=== PATIENT | female | born 1980 | race American Indian/Alaskan Native ===

== ENCOUNTER 2016-08-05 15:48 | Outpatient (CLI) | payer MEDICAID, MEDICARE ==
[2016-08-05] MEDS ORDERED: CELESTONE SOLUSPAN IM ONE (15:58)
[2016-08-05] MEDS ORDERED: LACTATED RINGERS 500 ML IV ONE (15:59)
[2016-08-05 16:27] VITALS: BP 99/61
[2016-08-05 16:53] LABS: Bacteria,Urine 2+ /HPF (Negative); Bilirubin,Urine NEG (Negative); Blood,Urine NEG (Negative); Ketones,Urine NEG (Negative); Leukocyte Esterase,Urine SM (Negative); Nitrite,Urine NEG (Negative); Protein,Urine <15 mg/dL mg/dL (Negative); Urobilinogen,Urine < 2.0 mg/dL (<2.0); WBC,Urine < 1.0 /HPF (0.0-6.0)
== END 2016-08-05 17:00 | disposition home or self-care (01) ==
LOC: TRG 15:48
PROVIDERS: ATTEND Obstetrics & Gynecology
DX: O09.523 Supervision of elderly multigravida, third trimester (principal); O47.03 False labor before 37 completed weeks of gestation, third trimester; Z3A.34 34 weeks gestation of pregnancy
CPT/HCPCS: 81001; J0702; 96372

== ENCOUNTER 2018-03-06 04:41 | Inpatient (IN) | payer MEDICARE ==
[2018-03-06] MEDS ORDERED: CELESTONE SOLUSPAN IM SCH (09:00)
[2018-03-06] MEDS ORDERED: ZOFRAN IV PRN (09:07)
[2018-03-06] MEDS ORDERED: DEEP SEA NS PRN (09:07)
[2018-03-06] MEDS ORDERED: COLACE PO PRN (09:07)
[2018-03-06] MEDS ORDERED: MYLICON PO PRN (09:07)
[2018-03-06] MEDS ORDERED: TYLENOL PO PRN (09:07)
[2018-03-06] MEDS ORDERED: BENADRYL PO PRN (09:07)
[2018-03-06] MEDS ORDERED: AMBIEN PO PRN (09:07)
--- NOTE | 2018-03-06 09:11 | History and Physical Report ---
History of Present Illness Date of examination: 03/06/18 Chief complaint: my water broke History of present illness: Pt is a 37 year old -[place]ron[place] female ANGELLA 05/08/18 at 31w0d who presents with complaint of leakage of fluid on Fri03/04/18 around 10 pm. She initially presented to triage last night, where she had an ultrasound showing EVELIN 3.6 cm and nitrizine confirming rupture of membranes. When she was told she would be admitted until 34 wks she left the facility. She has had care at [facility] since 12 wks complicated by three deliveries referred to [facility] and receiving progesterone injections (but she missed her injection this Friday), advanced maternal age, tobacco use, partial previa in Dec 2017. Her GBS status is unkwown. She returns this morning reporting that she is willing to stay "but not for four weeks." Past History Past Medical History: no pertinent history Past Surgical History: no surgical history RN RELIEF CHARGE History: chlamydia (remote from ) Family/Genetic History: none Social history: smoking - Obstetrical History Expected Date of Delivery: 05/08/18 Actual Gestation: 31 Week(s) 0 Day(s) : 6 Para: 5 Hx # Term Pregnancies: 2 Number of Pregnancies: 3 Spontaneous Abortions: 0 Induced : 0 Number of Living Children: 5 Medications and Allergies Allergies Allergy/AdvReac Type Severity Reaction Status Date / Time No Known Allergies Allergy Verified 08/23/16 10:05 Home Medications Medication Instructions Recorded Confirmed Last Taken Type Vits96/Iron Fum/Folic 1 tab PO DAILY 05/06/13 03/05/18 08/22/16 14:00 History [ Tablet] 1 Active Meds: Active Medications Acetaminophen (Tylenol) 650 mg PO Q4H PRN PRN Reason: Pain MILD(1-3)/Fever >100.5/SWANSON Amoxicillin (Trimox) 250 mg PO Q8HR ANDREW; Protocol Stop: 03/13/18 09:07 Betamethasone Acet/Betameth SodPhos (Celestone Soluspan) 12 mg IM Q24HR ANDREW Stop: 03/06/18 10:01 Diphenhydramine HCl (Benadryl) 25 mg PO Q6H PRN PRN Reason: Itching Docusate Sodium (Colace) 100 mg PO Q12H PRN PRN Reason: Constipation Erythromycin (Arnoldo-Tab) 250 mg PO Q8HR [facility]; Protocol Stop: 03/13/18 09:07 Ampicillin Sodium (Polycillin/Ns 2 Gm/100 Ml) 2 gm in 100 mls @ 100 mls/hr IV Q6HR [facility]; Protocol Stop: 03/08/18 06:59 Lactated Ringer's (Lactated Ringers) 1,000 mls @ 125 mls/hr IV DIRECT ANDREW Multivitamins/Iron/Calcium ( Vitamin) 1 each PO QDAY ANDREW Ondansetron HCl (Zofran) 4 mg IV Q6H PRN PRN Reason: Nausea And Vomiting Simethicone (Mylicon) 80 mg PO Q6H PRN PRN Reason: Gas pain Sodium Chloride (Deep Sea) 2 spray NS Q4H PRN PRN Reason: Congestion Zolpidem Tartrate (Ambien) 10 mg PO ONCE PRN PRN Reason: Sleep Review of Systems All systems: negative - Vital Signs Vital signs: Vital Signs Temp Pulse Resp BP 97.7 F 101 H 24 125/56 03/06/18 04:54 03/06/18 04:54 03/06/18 04:54 03/06/18 04:54 Temp Pulse Resp BP Pulse Ox 97.7 F 81 24 87/45 03/06/18 04:54 03/06/18 08:05 03/06/18 04:54 03/06/18 08:05 - Physical Exam Breasts: Positive: deferred Cardiovascular: Regular rate Lungs: Positive: Clear to auscultation Abdomen: Positive: soft (gravid) Genitourinary (Female): Positive: normal external genitalia Uterus: Positive: enlarged (gravid) Extremities: Positive: normal - Obstetrical FHR: auscultation normal Uterine Contraction Monitor Mode: External Cervical Dilatation: 0.5 Uterine Contraction Pattern: Absent Uterine Tone Measurement Phase: Resting Results Result Diagrams: 03/06/18 10:49 All other labs normal. Assessment and Plan A: IUP at 31w0d PPROM Oligohydramnios Cephalic presentation on 03/05/18 H/o three prior deliveries Tobacco Abuse AMA GBS unknown P: Admit to antepartum service Steroid course for lung maturity Latency antibiotics Closely monitor maternal and status
[2018-03-06] MEDS ORDERED: LACTATED RINGERS 1,000 ML IV SCH (10:00)
[2018-03-06] MEDS ORDERED: PRENATAL VITAMIN PO SCH (10:00)
[2018-03-06] MEDS: AMPICILLIN/NS 2 GM/100 ML 2 GM/100 ML BAG IV SCH ×2 (10:30→16:40)
[2018-03-06 11:53] LABS: Basophils % (Auto) 0.6 % (0.0-1.8); Eosinophils # (Auto) 0.3 K/mm3 (0.0-0.4); Eosinophils % (Auto) 3.5 % (0.0-4.3); Hematocrit 31.2 % (30.3-42.9); Hemoglobin 10.7 gm/dl (10.1-14.3); Lymphocytes # (Auto) 1.9 K/mm3 (1.2-5.4); Lymphocytes % (Auto) 26.8 % (13.4-35.0); Mean Corpuscular HGB Conc 34 % (30-34); Mean Corpuscular Volume 89 fl (79-97); Monocytes # (Auto) 0.4 K/mm3 (0.0-0.8); Monocytes % (Auto) 5.2 % (0.0-7.3); Platelet Count 184 K/mm3 (140-440); Red Blood Count 3.52 M/mm3 (3.65-5.03); Red Cell Distribution Width 13.5 % (13.2-15.2)
[2018-03-06 16:58] LABS: Amphetamine Screen,Urine PRESUMPTIVE NEGATIVE; Benzodiazepines Screen,Urine PRESUMPTIVE NEGATIVE; Cannabinoid Screen,Urine PRESUMPTIVE NEGATIVE; Cocaine Screen,Urine PRESUMPTIVE NEGATIVE; Methadone Screen,Urine PRESUMPTIVE NEGATIVE; Opiate Screen,Urine PRESUMPTIVE NEGATIVE
[2018-03-06 17:10] VITALS: BP 99/56
--- NOTE | 2018-03-07 13:19 | Event Note ---
Date: 03/07/18 Late entry. Contacted by the patient's nurse because patient has decided to leave AGAINST MEDICAL ADVICE because she wants to "be with her children". The patient acknowledges the risks to her fetus and to her health of leaving the facility after being diagnosed with premature rupture of membranes. She signed the AGAINST MEDICAL ADVICE form prior to leaving. She does plan to return tomorrow for her second injection of betamethasone for lung maturity.
--- NOTE | 2018-03-07 13:22 | Discharge Summary ---
Providers - Providers Date of Admission: 03/06/18 09:07 Date of discharge: 03/06/18 Attending physician: JOANNA RUDD Primary care physician: JOANNA RUDD Hospitalization Reason for admission: rupture of membranes Hospital course: This patient was admitted to the antepartum service for premature rupture of membranes. She did receive 1 dose of betamethasone and started IV antibiotic therapy for latency. However the patient decided to leave AGAINST MEDICAL ADVICE on the afternoon of admission because she wants to be with her children. She understands the risk of maternal or compromise and desires to proceed with leaving the facility. She does plan to return tomorrow for her second betamethasone injection. Condition at discharge: Undetermined Disposition: DC-07 LEFT AGAINST MED ADVICE - Discharge Diagnoses (1) premature rupture of membranes (PPROM) with unknown onset of labor Status: Acute (2) Tobacco abuse Status: Acute (3) Advanced maternal age (AMA) in Status: Acute (4) Noncompliance Status: Acute Plan - Provider Discharge Summary Activity: other (Nothing in vagina for remainder of ) Diet: routine Instructions: routine Additional instructions: [] Smoking cessation referral if applicable(refer to patient education folder for contact #) [] Refer to [facility] Booklet Call your doctor immediately for: * Fever > 100.5 * Heavy vaginal bleeding ( >1 pad per hour) * Severe persistent headache * Shortness of breath * Reddened, hot, painful area to leg or breast * Drainage or odor from incision. * Keep incision clean and dry at all times and follow doctor's instructions regarding bathing/showering - Follow up plan Follow up: JOANNA RUDD MD [Primary Care Provider] - 7 Days
[2018-03-08] MEDS ORDERED: ERY-TAB PO SCH (09:08)
[2018-03-08] MEDS ORDERED: TRIMOX PO SCH (09:08)
== END 2018-03-06 18:40 | disposition left against medical advice (07) | DRG 833 ==
LOC: TRG 04:41 → LD 04:49 → TRG 09:07 → LD 09:07
PROVIDERS: ADMIT Obstetrics & Gynecology; ATTEND Obstetrics & Gynecology
DX: O42.913 Preterm premature rupture of membranes, unspecified as to length of time between rupture and onset of labor, third trimester (principal); Z53.21 Procedure and treatment not carried out due to patient leaving prior to being seen by health care provider; O99.334 Smoking (tobacco) complicating childbirth; F17.200 Nicotine dependence, unspecified, uncomplicated; Z91.14 Patient's other noncompliance with medication regimen; Z3A.31 31 weeks gestation of pregnancy
CPT/HCPCS: 36415; 59025; 76815; 76819; 80307; 81001; 85025; 86850; 86900; 86901; 96360; 96361; G0378; J0290; J0702; J7120

== ENCOUNTER 2018-03-07 13:00 | Outpatient (CLI) | payer MEDICAID, MEDICARE ==
[2018-03-07] MEDS ORDERED: CELESTONE SOLUSPAN IM ONE (13:10)
[2018-03-07] MEDS ORDERED: LACTATED RINGERS 500 ML IV ONE (13:46)
== END 2018-03-07 13:55 | disposition home or self-care (01) ==
LOC: TRG 13:00
PROVIDERS: ATTEND Obstetrics & Gynecology
DX: O47.03 False labor before 37 completed weeks of gestation, third trimester (principal); Z3A.31 31 weeks gestation of pregnancy; Z87.891 Personal history of nicotine dependence
CPT/HCPCS: 59025; 96372; J0702

== ENCOUNTER 2018-03-12 10:38 | Inpatient (IN) | payer MEDICARE ==
[2018-03-12] MEDS ORDERED: LACTATED RINGERS 500 ML IV ONE (11:04)
[2018-03-12 11:41] LABS: Bilirubin,Urine NEG (Negative); Blood,Urine LG (Negative); Color,Urine Straw (Yellow); Mucus,Urine FEW /HPF; Protein,Urine <15 mg/dL mg/dL (Negative)
[2018-03-12] MEDS ORDERED: CELESTONE SOLUSPAN IM SCH (12:00)
[2018-03-12 12:27] LABS: Basophils # (Auto) 0.1 K/mm3 (0.0-0.1); Basophils % (Auto) 0.5 % (0.0-1.8); Eosinophils # (Auto) 0.2 K/mm3 (0.0-0.4); Eosinophils % (Auto) 1.6 % (0.0-4.3); Hematocrit 35.1 % (30.3-42.9); Hemoglobin 12.1 gm/dl (10.1-14.3); Lymphocytes # (Auto) 1.7 K/mm3 (1.2-5.4); Lymphocytes % (Auto) 11.7 % (13.4-35.0); Mean Corpuscular HGB Conc 34 % (30-34); Mean Corpuscular Volume 88 fl (79-97); Monocytes # (Auto) 0.8 K/mm3 (0.0-0.8); Monocytes % (Auto) 5.7 % (0.0-7.3); Platelet Count 209 K/mm3 (140-440); Red Blood Count 3.99 M/mm3 (3.65-5.03)
[2018-03-12] MEDS ORDERED: AFLURIA QUAD 2018-2019 SYRINGE IM ONE (13:05)
[2018-03-12] MEDS ORDERED: LACTATED RINGERS 1,000 ML IV SCH (14:00)
[2018-03-12] MEDS ORDERED: NARCAN 2 MG/2 ML IV PRN (14:01)
--- NOTE | 2018-03-12 14:07 | Anesthesia Consultation ---
Anesthesia Consult and Med Hx Date of service: 03/12/18 - Airway Anesthetic Teeth Evaluation: Poor (multiple broken teeth) ROM Head & Neck: Adequate Mental/Hyoid Distance: Adequate Mallampati Class: Class II Intubation Access Assessment: Probably Good - Pre-Operative Health Status ASA Pre-Surgery Classification: ASA2 Proposed Anesthetic Plan: Epidural, Spinal - Pulmonary Hx Asthma: No COPD: No Hx Pneumonia: No - Cardiovascular System Hx Hypertension: No - Central Nervous System Hx Seizures: No Hx Psychiatric Problems: No - Endocrine Hx Renal Disease: No Hx End Stage Renal Disease: No Hx Hypothyroidism: No Hx Hyperthyroidism: No - Hematic Hx Anemia: Yes Hx Sickle Cell Disease: No - Other Systems Hx Alcohol Use: No Hx Substance Use: No
--- NOTE | 2018-03-12 14:33 | Ultrasound Report ---
OB ULTRASOUND History weight, presentation. Technique: Transabdominal ultrasound with Doppler interrogation. Gestation: Single Position: Cephalic Heart Rate: 134 BPM BPD: 7.9 cm = 31 w 5 d HC: 27.7 cm = 30 w 2 d AC: 25.7 cm = 29 w 6 d FL: 5.6 cm = 29 w 3 d HC/AC Ratio: 1.08 Cephalic Index: 85.8 Estimated Weight: 1477 grams. 5th percentile. LMP: 08/03/17 Clinical age = 31 w 4 d EDC: 05/10/18 US Gest. Age = 30 w 2 d EDC: 05/19/18 IMPRESSION: Viable, single intrauterine as described.
[2018-03-12] MEDS ORDERED: AMPICILLIN/NS 2 GM/100 ML 2 GM/100 ML BAG IV SCH (15:00)
[2018-03-12] MEDS ORDERED: fentaNYL-BUPIV 2 MCG/ML-0.125% 200 MCG/100 ML BAG EPIDURAL SCH (15:00)
[2018-03-12] MEDS ORDERED: PITOCin/NS 30 UNIT/500ML 30 UNITS/500 ML BAG IV SCH (17:00)
[2018-03-12] MEDS: PITOCin/NS 20 UNIT/1000ML DRIP 20 UNITS/1,000 ML BAG IV SCH ×2 (17:24→19:15)
--- NOTE | 2018-03-12 17:29 | Procedure Note ---
OB Delivery Note - Delivery Date of Delivery: 03/12/18 Surgeon: YEVGENIY SALINAS Estimated blood loss: 300cc - Vaginal Delivery presentation: vertex Delivery position: OA Episiotomy: none Delivery laceration: none Anesthesia: epidural Delivery comments: Called to room by RN due to heart tones down in the 80s. Patient completely dilated and +[address] Dixon called and in route. Patient with epidural in place and delivered a male after approximately 3 pushes. Cord clamped and cut NICU personnel present and was given the infant. Cord blood obtained. This time Dr. Pacheco arrived and delivered the placenta. - A at 1 minute: 8 at 5 minutes: 9 Gender: Male
--- NOTE | 2018-03-12 17:30 | History and Physical Report ---
History of Present Illness Date of examination: 03/12/18 Date of admission: 03/12/18 12:02 Chief complaint: contractions History of present illness: 37y/o @ 31+4 weeks presents to triage with the complaint of uterine contractions. The patient was found to be 6cm on evaluation. The patient has been ruptured for weeks but refused to be admitted despite being aware of the risks to her and her infant. The patient has had sporadic and inconsistent care. She did receive betamethasone last week. Past History Past Medical History: other (poor dental hygiene) Past Surgical History: no surgical history Social history: single, smoking - Obstetrical History : 8 Para: 7 Hx # Term Pregnancies: 4 Number of Pregnancies: 3 Spontaneous Abortions: 0 Induced : 0 Number of Living Children: 7 Medications and Allergies Allergies Allergy/AdvReac Type Severity Reaction Status Date / Time No Known Allergies Allergy Verified 08/23/16 10:05 Home Medications Medication Instructions Recorded Confirmed Last Taken Type Vits96/Iron Fum/Folic 1 tab PO DAILY 05/06/13 03/05/18 08/22/16 14:00 History [ Tablet] 1 Active Meds: Active Medications Betamethasone Acet/Betameth SodPhos (Celestone Soluspan) 12 mg IM Q24H ANDREW Stop: 03/13/18 12:01 Ephedrine Sulfate (Ephedrine Sulfate) 10 mg IV Q2M PRN PRN Reason: Hypotension Lactated Ringer's (Lactated Ringers) 1,000 mls @ 125 mls/hr IV DIRECT ANDREW Fentanyl/Bupivacaine/Sodium Chlor (Fentanyl-Bupiv 2 Mcg/Ml-0.125%) 200 mcg in 100 mls @ 12 mls/hr EPIDURAL TITR ANDREW; Protocol Last Admin: 03/12/18 14:43 Dose: 12 mls/hr Documented by: Ampicillin Sodium (Polycillin/Ns 2 Gm/100 Ml) 2 gm in 100 mls @ 100 mls/hr IV Q6H ANDREW Stop: 03/14/18 09:59 Last Admin: 03/12/18 14:58 Dose: 100 mls/hr Documented by: Oxytocin/Sodium Chloride (Pitocin/Ns 20 Unit/1000ml Drip) 20 units in 1,000 mls @ 125 mls/hr IV DIRECT ANDREW Oxytocin/Sodium Chloride (Pitocin/Ns 30 Unit/500ml) 30 units in 500 mls @ 2 mls/hr IV TITR ANDREW; Protocol Naloxone HCl (Narcan 2 Mg/2 Ml) 0.2 mg IV Q5M PRN PRN Reason: Respiratory sedation Review of Systems All systems: negative Genitourinary: vaginal bleeding, leakage of fluid, contractions - Vital Signs Vital signs: Vital Signs Pulse BP 102 H 112/63 03/12/18 11:02 03/12/18 11:02 Temp Pulse Resp BP Pulse Ox 98.6 F 101 H 20 94/59 100 03/12/18 15:00 03/12/18 17:24 03/12/18 15:00 03/12/18 17:24 03/12/18 16:58 - Physical Exam Breasts: Positive: deferred Cardiovascular: Regular rate Lungs: Positive: Clear to auscultation Results Result Diagrams: 03/12/18 12:00 Abnormal lab results 03/12/18 03/12/18 Range/Units 11:20 12:00 WBC 14.7 H (4.5-11.0) K/mm3 Lymph % (Auto) 11.7 L (13.4-35.0) % Seg Neutrophils % 80.5 H (40.0-70.0) % Seg Neutrophils # 11.8 H (1.8-7.7) K/mm3 Urine WBC (Auto) 10.0 H (0.0-6.0) /HPF All other labs normal. Assessment and Plan - Patient Problems (1) labor Current Visit: Yes Status: Acute Plan to address problem: admit to L&D (2) Advanced maternal age (AMA) in Current Visit: No Status: Acute (3) premature rupture of membranes (PPROM) with unknown onset of labor Current Visit: No Status: Acute
[2018-03-12] MEDS ORDERED: BENADRYL PO PRN (17:39)
[2018-03-12] MEDS ORDERED: NORCO 5/325 PO PRN (17:39)
[2018-03-12] MEDS ORDERED: TYLENOL PO PRN (17:39)
[2018-03-12] MEDS ORDERED: PHENERGAN PR PRN (17:39)
[2018-03-12] MEDS ORDERED: PHENERGAN PO PRN (17:39)
[2018-03-12] MEDS ORDERED: DULCOLAX PR PRN (17:39)
[2018-03-12] MEDS ORDERED: MILK OF MAGNESIA PO PRN (17:39)
[2018-03-12] MEDS ORDERED: ZOFRAN IV PRN (17:39)
[2018-03-12] MEDS ORDERED: TUCKS PAD TP PRN (17:39)
[2018-03-12] MEDS ORDERED: LANSINOH TP PRN (17:39)
--- NOTE | 2018-03-12 17:44 | Event Note ---
Date: 03/12/18 Patient had a precipitous delivery attended by Dr Salinas. The nurse reports prior to delivery there was a large gush of blood despite the patient already having ruptured membranes. The placenta delivered spontaneously intact. There was evidence of an organized clot covering approximately 30% of the placenta. No lacerations on the patient were noted. EBL 200ml.
[2018-03-12] MEDS ORDERED: SODIUM CHLORIDE FLUSH SYRINGE 10 ML IV NR (18:00)
[2018-03-12] MEDS: IBUPROFEN PO SCH ×2 (18:34→23:32)
[2018-03-12 19:14] LABS: Amphetamine Screen,Urine PRESUMPTIVE NEGATIVE; Benzodiazepines Screen,Urine PRESUMPTIVE NEGATIVE; Cannabinoid Screen,Urine PRESUMPTIVE NEGATIVE; Cocaine Screen,Urine PRESUMPTIVE NEGATIVE; Methadone Screen,Urine PRESUMPTIVE NEGATIVE; Opiate Screen,Urine PRESUMPTIVE NEGATIVE
[2018-03-13] MEDS: IBUPROFEN PO SCH ×2 (05:32→13:11)
[2018-03-13 06:27] LABS: Hematocrit 30.6 % (30.3-42.9)
--- NOTE | 2018-03-13 09:54 | Progress Note ---
Assessment and Plan A/P PPD delivery baby in [place] desires tubal ligation PP routine PP care consider d/c home tomorrow Subjective - Subjective Date of service: 03/13/18 Principal diagnosis: Patient reports: appetite normal, voiding normally, pain well controlled, flatus, ambulating normally : doing well, in NICU Objective - Vital Signs Latest vital signs: Vital Signs Temp Pulse Resp BP BP Pulse Ox 03/13/18 08:20 97.6 F 89 18 101/64 101/64 99 03/13/18 04:46 98.2 F 91 H 18 94/60 98 03/13/18 00:30 98.6 F 98 H 18 108/61 97 03/12/18 20:20 98.4 F 84 18 106/69 98 03/12/18 18:55 93 H 122/57 03/12/18 18:40 90 106/56 03/12/18 18:33 113 H 118/58 03/12/18 18:30 98.1 F 20 03/12/18 18:11 83 145/58 03/12/18 17:39 93 H 94/52 03/12/18 17:24 101 H 94/59 03/12/18 17:20 98.3 F 20 03/12/18 17:15 96 H 103/58 03/12/18 17:01 89 101/59 03/12/18 16:58 89 100 03/12/18 16:53 100 H 99 03/12/18 16:48 91 H 98 03/12/18 16:45 88 98/57 03/12/18 16:43 91 H 99 03/12/18 16:37 89 100 03/12/18 16:32 92 H 100 03/12/18 16:30 93 H 103/62 03/12/18 16:27 94 H 100 03/12/18 16:22 91 H 100 03/12/18 16:15 95 H 106/64 03/12/18 16:12 103 H 99 03/12/18 16:07 95 H 100 03/12/18 16:02 93 H 100 03/12/18 16:00 95 H 108/58 03/12/18 15:57 95 H 100 03/12/18 15:52 109 H 100 03/12/18 15:47 100 H 97 03/12/18 15:45 99 H 94/54 03/12/18 15:42 99 H 97 03/12/18 15:37 101 H 97 03/12/18 15:32 99 H 97 03/12/18 15:30 95 H 100/58 03/12/18 15:27 97 H 98 03/12/18 15:22 94 H 98 03/12/18 15:17 97 H 99 03/12/18 15:15 100 H 94/59 03/12/18 15:12 101 H 98 03/12/18 15:07 94 H 99 03/12/18 15:02 94 H 99 03/12/18 15:00 98.6 F 87 20 97/61 03/12/18 14:57 92 H 99/56 99 03/12/18 14:52 90 99 03/12/18 14:47 94 H 99 03/12/18 14:42 94 H 100 03/12/18 14:40 98 H 99/54 03/12/18 14:38 84 101/56 03/12/18 14:37 87 100 03/12/18 14:36 87 94/55 03/12/18 14:34 88 89/53 03/12/18 14:33 93 H 95/49 03/12/18 14:32 94 H 100 03/12/18 14:31 86 94/51 03/12/18 14:29 91 H 95/65 03/12/18 14:27 101 H 100 03/12/18 14:26 96 H 103/58 03/12/18 14:24 98 H 99/62 03/12/18 14:22 100 H 98/59 100 03/12/18 14:20 94 H 95/58 03/12/18 14:18 94 H 98/61 03/12/18 14:17 101 H 100 03/12/18 14:16 96 H 94/59 03/12/18 14:14 96 H 98/61 03/12/18 14:13 93 H 93/61 03/12/18 14:12 95 H 99 03/12/18 14:10 96 H 96/53 03/12/18 14:09 90 102/51 03/12/18 14:07 98 H 103/57 99 03/12/18 14:02 91 H 100 03/12/18 14:01 104 H 103/79 01/10/19 13:57 89 100 03/12/18 13:52 101 H 100 03/12/18 13:48 99 H 112/77 03/12/18 13:47 99 H 95 03/12/18 11:05 98.6 F 102 H 20 112/63 03/12/18 11:02 102 H 11263 Intake and Output 03/12/18 03/13/18 03/13/18 23:59 07:59 15:59 Intake Total 1120 920 360 Output Total 1400 700 Balance -280 220 360 Intake: IV 1000 PITOCin/NS 20 UNIT/1000ML 1000 DRIP 20 units In 1,000 ml @ 125 mls/hr IV DIRECT ANDREW Rx#:[id number] Oral 120 920 120 Intake, Free Water 240 Output: Urine 1400 700 Indwelling Catheter 600 Void 800 700 Other: Total, Intake Amount 120 240 120 Total, Output Amount 300 400 # Voids Void 1 Estimated Blood Loss 200 - Exam Breasts: Present: normal Cardiovascular: Present: Regular rate, Normal S1 Lungs: Present: Clear to auscultation, Normal air movement Abdomen: Present: normal appearance, soft, normal bowel sounds. Absent: distention, tenderness, guarding Vulva: both: normal Uterus: Present: normal, firm, fundal height below umbilicus. Absent: bogginess, tenderness Extremities: Present: normal Deep Tendon Reflex Grade: Normal +2 - Labs Labs: Abnormal lab results 03/12/18 03/12/18 03/13/18 Range/Units 11:20 12:00 06:09 WBC 14.7 H (4.5-11.0) K/mm3 Hgb 10.0 L (10.1-14.3) gm/dl Lymph % (Auto) 11.7 L (13.4-35.0) % Seg Neutrophils % 80.5 H (40.0-70.0) % Seg Neutrophils # 11.8 H (1.8-7.7) K/mm3 Urine WBC (Auto) 10.0 H (0.0-6.0) /HPF
--- NOTE | 2018-03-13 17:08 | Discharge Summary ---
Providers - Providers Date of Admission: 03/12/18 12:02 Date of discharge: 03/14/18 Attending physician: JOANNA RUDD Primary care physician: JOANNA RUDD Hospitalization Reason for admission: active labor, vaginal bleeding, labor Delivery: Episiotomy: none Laceration: none Incision: normal complications: none Discharge diagnosis: delivery [place] baby: male Hospital course: kenia admitted and delivered a baby in [place]. Did well PP and d/c home ppd 2. F/u in 4 weeks Condition at discharge: Good Disposition: DC-01 TO HOME OR SELFCARE Plan - Discharge Medications Prescriptions: Ferrous Sulfate 325 mg PO BID #60 tablet. Ibuprofen [Motrin] 600 mg PO Q8H PRN #30 tablet PRN Reason: Pain oxyCODONE /ACETAMINOPHEN [Percocet 5/325] 1 tab PO Q6HR PRN #20 tablet PRN Reason: Pain - Provider Discharge Summary Activity: routine, no sex for 6 weeks, no strenuous exercise Diet: routine Instructions: routine Additional instructions: [] Smoking cessation referral if applicable(refer to patient education folder for contact #) [] Refer to [facility] Booklet Call your doctor immediately for: * Fever > 100.5 * Heavy vaginal bleeding ( >1 pad per hour) * Severe persistent headache * Shortness of breath * Reddened, hot, painful area to leg or breast * Drainage or odor from incision. * Keep incision clean and dry at all times and follow doctor's instructions regarding bathing/showering - Follow up plan Follow up: JOANNA RUDD MD [Primary Care Provider] - 04/09/18
[2018-03-13 18:43] VITALS: BP 120/66
[2018-03-14] MEDS ORDERED: BOOSTRIX IM ONE (06:00)
== END 2018-03-13 18:36 | disposition home or self-care (01) | DRG 805 ==
LOC: TRG 10:38 → LD 12:02 → OB 20:11
PROVIDERS: ADMIT Obstetrics & Gynecology; ATTEND Obstetrics & Gynecology
PROC: 10E0XZZ Delivery of Products of Conception, External Approach (ICD-10-PCS; principal; 2018-03-12)
PROC: 3E0R3BZ Introduction of Anesthetic Agent into Spinal Canal, Percutaneous Approach (ICD-10-PCS; 2018-03-12)
PROC: 00HU33Z Insertion of Infusion Device into Spinal Canal, Percutaneous Approach (ICD-10-PCS; 2018-03-12)
DX: O42.013 Preterm premature rupture of membranes, onset of labor within 24 hours of rupture, third trimester (principal); O60.14X0 Preterm labor third trimester with preterm delivery third trimester, not applicable or unspecified; Z37.0 Single live birth; O99.334 Smoking (tobacco) complicating childbirth; F17.210 Nicotine dependence, cigarettes, uncomplicated; O62.3 Precipitate labor; Z3A.31 31 weeks gestation of pregnancy
CPT/HCPCS: 36415; 76816; 80307; 81001; 85014; 85018; 85025; 86592; 86850; 86900; 86901; 88307; 90686; G0378; J0290; J0702; J2590; J7120

== ENCOUNTER 2018-03-15 05:41 | Emergency (ER) | payer MEDICARE | END 2018-03-15 05:53 | disposition left against medical advice (07) | LOC: ED 05:41 ==

== ENCOUNTER 2020-09-30 14:26 | Emergency (ER) | payer MEDICARE ==
[2020-09-30 15:06] VITALS: BP 97/69
--- NOTE | 2020-09-30 15:33 | Emergency Department Report ---
ED ENT HPI - General Chief complaint: Headache Stated complaint: DENTAL PAIN, HEADACHE Time Seen by Provider: 09/30/20 15:27 Source: patient Mode of arrival: Ambulatory Limitations: No Limitations - History of Present Illness Initial comments: 40-year-old female presents to the ER today with complaints of left lower dental pain which started mildly about a week ago but has been getting worse. She states that the toothache is causing her to have a headache. She reports associated swelling. She admits that she does have a history of bad teeth. She does not currently have a dentist. She denies any trismus, drooling, difficulty swallowing, shortness of breath, fever or chills. MD complaint: tooth pain -: week(s) (1) Severity: moderate, severe - Related Data Home Medications Medication Instructions Recorded Confirmed Last Taken Vits96/Iron Fum/Folic 1 tab PO DAILY 05/06/13 03/12/18 08/22/16 14:00 [ Tablet] 1 Previous Rx's Medication Instructions Recorded Last Taken Type Ferrous Sulfate 325 mg PO BID #60 tablet. 03/13/18 Unknown Rx oxyCODONE /ACETAMINOPHEN [Percocet 1 tab PO Q6HR PRN #20 tablet 03/13/18 Unknown Rx 5/325] Ibuprofen [Motrin 600 MG tab] 600 mg PO Q8H PRN #30 tablet 09/30/20 Unknown Rx Penicillin V Potassium 500 mg PO QID #40 tablet 09/30/20 Unknown Rx traMADoL [Ultram] 50 mg PO Q6HR PRN #12 tablet 09/30/20 Unknown Rx Allergies Allergy/AdvReac Type Severity Reaction Status Date / Time No Known Allergies Allergy Verified 08/23/16 10:05 ED Dental HPI - General Chief complaint: Headache Stated complaint: DENTAL PAIN, HEADACHE Time Seen by Provider: 09/30/20 15:27 Source: patient Mode of arrival: Ambulatory Limitations: No Limitations - Related Data Home Medications Medication Instructions Recorded Confirmed Last Taken Vits96/Iron Fum/Folic 1 tab PO DAILY 05/06/13 03/12/18 08/22/16 14:00 [ Tablet] 1 Previous Rx's Medication Instructions Recorded Last Taken Type Ferrous Sulfate 325 mg PO BID #60 tablet. 03/13/18 Unknown Rx oxyCODONE /ACETAMINOPHEN [Percocet 1 tab PO Q6HR PRN #20 tablet 03/13/18 Unknown Rx 5/325] Ibuprofen [Motrin 600 MG tab] 600 mg PO Q8H PRN #30 tablet 09/30/20 Unknown Rx Penicillin V Potassium 500 mg PO QID #40 tablet 09/30/20 Unknown Rx traMADoL [Ultram] 50 mg PO Q6HR PRN #12 tablet 09/30/20 Unknown Rx Allergies Allergy/AdvReac Type Severity Reaction Status Date / Time No Known Allergies Allergy Verified 08/23/16 10:05 ED Review of Systems ROS: Stated complaint: DENTAL PAIN, HEADACHE Other details as noted in HPI Comment: All other systems reviewed and negative Constitutional: denies: chills, fever Eyes: denies: eye pain, eye discharge, vision change ENT: dental pain Respiratory: denies: cough, shortness of breath, SOB with exertion, SOB at rest, wheezing Cardiovascular: denies: chest pain, palpitations, dyspnea on exertion, edema, syncope, paroxysmal nocturnal dyspnea Gastrointestinal: denies: abdominal pain, nausea, diarrhea, constipation, hematemesis, hematochezia Genitourinary: denies: urgency, dysuria, discharge Musculoskeletal: denies: back pain, joint swelling, arthralgia Skin: denies: rash, lesions, change in color, change in hair/nails, pruritus Neurological: denies: headache, weakness, paresthesias, confusion, abnormal gait, vertigo Psychiatric: denies: anxiety, depression, auditory hallucinations, visual hallucinations, homicidal thoughts, suicidal thoughts ED Past Medical Hx - Past Medical History Previous Medical History?: Yes Hx Hypertension: No Hx Congestive Heart Failure: No Hx Diabetes: No Hx Deep Vein Thrombosis: No Hx Renal Disease: No Hx Sickle Cell Disease: No Hx Headaches / Migraines: No Hx Seizures: No Hx Asthma: No Hx COPD: No Hx HIV: No Additional medical history: toothache - Surgical History Past Surgical History?: No - Social History Smoking Status: Current Every Day Smoker Substance Use Type: None - Medications Home Medications: Home Medications Medication Instructions Recorded Confirmed Last Taken Type Vits96/Iron Fum/Folic 1 tab PO DAILY 05/06/13 03/12/18 08/22/16 14:00 History [ Tablet] 1 Ferrous Sulfate 325 mg PO BID #60 tablet. 03/13/18 Unknown Rx oxyCODONE /ACETAMINOPHEN [Percocet 1 tab PO Q6HR PRN #20 tablet 03/13/18 Unknown Rx 5/325] Ibuprofen [Motrin 600 MG tab] 600 mg PO Q8H PRN #30 tablet 09/30/20 Unknown Rx Penicillin V Potassium 500 mg PO QID #40 tablet 09/30/20 Unknown Rx traMADoL [Ultram] 50 mg PO Q6HR PRN #12 tablet 09/30/20 Unknown Rx ED Physical Exam - General Limitations: No Limitations General appearance: alert, in no apparent distress - Head Head exam: Present: atraumatic, normocephalic, normal inspection - Eye Eye exam: Present: normal appearance, PERRL, EOMI Pupils: Present: normal accommodation - ENT ENT exam: Present: mucous membranes moist - Expanded ENT Exam Expanded Mouth exam: Present: normal external inspection Teeth exam: Present: dental caries (diffusely) 1 - Dental Tenderness (Severe tenderness), Other (Mild gingival swelling, but no jaw facial swelling no facial cellulitis no obvious abscess) Throat exam: Positive: normal inspection - Neck Neck exam: Present: normal inspection, full ROM. Absent: lymphadenopathy - Respiratory Respiratory exam: Present: normal lung sounds bilaterally. Absent: respiratory distress, wheezes, rales, rhonchi - Cardiovascular Cardiovascular Exam: Present: regular rate, normal rhythm, normal heart sounds - GI/Abdominal GI/Abdominal exam: Present: soft. Absent: distended, tenderness, guarding, rebound - Neurological Exam Neurological exam: Present: alert, oriented X3, CN II-XII intact, normal gait - Psychiatric Psychiatric exam: Present: normal affect, normal mood - Skin Skin exam: Present: intact ED Course Vital Signs 09/30/20 15:04 Temperature 98.7 F Pulse Rate 103 H Respiratory 18 Rate Blood Pressure 97/69 O2 Sat by Pulse 100 Oximetry Critical care attestation.: If time is entered above; I have spent that time in minutes in the direct care of this critically ill patient, excluding procedure time. ED Disposition Clinical Impression: Dental caries, Periapical abscess Disposition: TO HOME OR SELFCARE Is pt being admited?: No Does the pt Need Aspirin: No Condition: Stable Instructions: Dental Abscess, [id number] Additional Instructions: Take the ibuprofen and the penicillin as prescribed. It is important that you try to follow-up with one of the dentist listed on the list given to you at discharge. Return to the ER if your symptoms changes or worsens in any way. Prescriptions: Ibuprofen [Motrin 600 MG tab] 600 mg PO Q8H PRN #30 tablet PRN Reason: Pain Penicillin V Potassium 500 mg PO QID #40 tablet traMADoL [Ultram] 50 mg PO Q6HR PRN #12 tablet PRN Reason: Pain Referrals: PRIMARY CARE, [Primary Care Provider] - 3-5 Days Time of Disposition: 15:38
== END 2020-09-30 16:40 | disposition home or self-care (01) ==
LOC: ED 14:26
DX: K02.9 Dental caries, unspecified (principal); K04.7 Periapical abscess without sinus
CPT/HCPCS: 99282

== ENCOUNTER 2020-10-17 17:31 | Emergency (ER) | payer SELFPAY | END 2020-10-17 17:57 | LOC: ED 17:31 | DX: R05 Cough (principal); R09.81 Nasal congestion; Z53.21 Procedure and treatment not carried out due to patient leaving prior to being seen by health care provider ==

== ENCOUNTER 2020-11-22 14:20 | Emergency (ER) | payer SELFPAY ==
[2020-11-22 16:36] VITALS: BP 99/67
--- NOTE | 2020-11-22 16:48 | Emergency Department Report ---
ED Female HPI - General Chief complaint: Abdominal Pain Stated complaint: YEAST INFECTION Time Seen by Provider: 11/22/20 16:36 Source: patient Mode of arrival: Ambulatory Limitations: No Limitations - History of Present Illness Initial comments: Patient is a 40-year-old female presents emergency room complaints of vaginal discharge that began 4 days ago. She has associated vaginal itching, vaginal burning. She states that she does not have any discomfort with urination but just has discomfort when the urine touches the outer skin of the vagina. She states the discharge is clear and watery. She denies any fever, nausea, vomiting, diarrhea, dysuria, urinary frequency, urinary odor, dark urine, abdominal pain, back pain, lesions or blisters. She denies any past medical history. No allergies to medications. She states that she is only sexually active with her and denies any concerns for STDs. She states her last menstrual cycle was 11/01/2020. - Related Data Home Medications Medication Instructions Recorded Confirmed Last Taken Vits96/Iron Fum/Folic 1 tab PO DAILY 05/06/13 03/12/18 08/22/16 14:00 [ Tablet] 1 Previous Rx's Medication Instructions Recorded Last Taken Type Ferrous Sulfate 325 mg PO BID #60 tablet. 03/13/18 Unknown Rx oxyCODONE /ACETAMINOPHEN [Percocet 1 tab PO Q6HR PRN #20 tablet 03/13/18 Unknown Rx 5/325] Ibuprofen [Motrin 600 MG tab] 600 mg PO Q8H PRN #30 tablet 09/30/20 Unknown Rx Penicillin V Potassium 500 mg PO QID #40 tablet 09/30/20 Unknown Rx traMADoL [Ultram] 50 mg PO Q6HR PRN #12 tablet 09/30/20 Unknown Rx Fluconazole [Diflucan TAB] 100 mg PO QDAY 3 Days #3 tablet 11/22/20 Unknown Rx metroNIDAZOLE [Flagyl] 500 mg PO BID 7 Days #14 tab 11/22/20 Unknown Rx Allergies Allergy/AdvReac Type Severity Reaction Status Date / Time No Known Allergies Allergy Verified 11/22/20 15:01 ED Review of Systems ROS: Stated complaint: YEAST INFECTION Other details as noted in HPI Comment: All other systems reviewed and negative ED Past Medical Hx - Past Medical History Previous Medical History?: No Hx Hypertension: No Hx Congestive Heart Failure: No Hx Diabetes: No Hx Deep Vein Thrombosis: No Hx Renal Disease: No Hx Sickle Cell Disease: No Hx Headaches / Migraines: No Hx Seizures: No Hx Asthma: No Hx COPD: No Hx HIV: No Additional medical history: toothache - Surgical History Past Surgical History?: No - Social History Smoking Status: Current Every Day Smoker Substance Use Type: None - Medications Home Medications: Home Medications Medication Instructions Recorded Confirmed Last Taken Type Vits96/Iron Fum/Folic 1 tab PO DAILY 05/06/13 03/12/18 08/22/16 14:00 History [ Tablet] 1 Ferrous Sulfate 325 mg PO BID #60 tablet. 03/13/18 Unknown Rx oxyCODONE /ACETAMINOPHEN [Percocet 1 tab PO Q6HR PRN #20 tablet 03/13/18 Unknown Rx 5/325] Ibuprofen [Motrin 600 MG tab] 600 mg PO Q8H PRN #30 tablet 09/30/20 Unknown Rx Penicillin V Potassium 500 mg PO QID #40 tablet 09/30/20 Unknown Rx traMADoL [Ultram] 50 mg PO Q6HR PRN #12 tablet 09/30/20 Unknown Rx Fluconazole [Diflucan TAB] 100 mg PO QDAY 3 Days #3 tablet 11/22/20 Unknown Rx metroNIDAZOLE [Flagyl] 500 mg PO BID 7 Days #14 tab 11/22/20 Unknown Rx ED Physical Exam - General Limitations: No Limitations General appearance: alert, in no apparent distress - Head Head exam: Present: atraumatic, normocephalic - Eye Eye exam: Present: normal appearance - ENT ENT exam: Present: mucous membranes moist - Respiratory Respiratory exam: Present: normal lung sounds bilaterally. Absent: respiratory distress, wheezes, rales, rhonchi, stridor, chest wall tenderness, accessory muscle use, decreased breath sounds, prolonged expiratory - Cardiovascular Cardiovascular Exam: Present: regular rate, normal rhythm, normal heart sounds. Absent: systolic murmur, diastolic murmur, rubs, gallop - GI/Abdominal GI/Abdominal exam: Present: soft, normal bowel sounds. Absent: distended, tenderness, guarding, rebound, rigid - Neurological Exam Neurological exam: Present: alert, oriented X3 - Psychiatric Psychiatric exam: Present: normal affect, normal mood - Skin Skin exam: Present: warm, dry ED Course Vital Signs 11/22/20 14:59 Temperature 98.0 F Pulse Rate 82 Respiratory 18 Rate Blood Pressure 99/67 O2 Sat by Pulse 100 Oximetry ED Medical Decision Making - Medical Decision Making Patient is a 40-year-old female presents emergency room complaints of vaginal discharge that began 4 days ago. She has associated vaginal itching, vaginal burning. She states that she does not have any discomfort with urination but just has discomfort when the urine touches the outer skin of the vagina. She st ates the discharge is clear and watery. She denies any fever, nausea, vomiting, diarrhea, dysuria, urinary frequency, urinary odor, dark urine, abdominal pain, back pain, lesions or blisters. She denies any past medical history. No allergies to medications. She states that she is only sexually active with her and denies any concerns for STDs. She states her last menstrual cycle was 11/01/2020. Vitals are stable. Patient has no abdominal tenderness on exam, no guarding, no rebound, no rigidity, no problems, no peritoneal signs. Patient is not having any urinary symptoms, she denies back pain, abdominal pain, fever, nausea, vomiting. Patient denies any concerns for STDs. Symptoms likely related to vaginitis, could be from bacterial vaginosis versus yeast. Patient given prescription for medication. Discussed the importance of outpatient primary care and [facility] [employer] [employer] follow-up. Advised patient Please take medication as prescribed. Follow-up with [employer]. Return to emergency room for any new or worsening symptoms. Critical care attestation.: If time is entered above; I have spent that time in minutes in the direct care of this critically ill patient, excluding procedure time. ED Disposition Clinical Impression: Vaginitis Qualifiers: Chronicity: acute Qualified Code(s): N76.0 - Acute vaginitis Disposition: 01 HOME / SELF CARE / HOMELESS Is pt being admited?: No Does the pt Need Aspirin: No Condition: Stable Instructions: Vaginitis, Abdominal Pain (ED) Additional Instructions: Please take medication as prescribed. Follow-up with [facility] [employer] [employer]. Return to emergency room for any new or worsening symptoms. Prescriptions: Fluconazole [Diflucan TAB] 100 mg PO QDAY 3 Days #3 tablet metroNIDAZOLE [Flagyl] 500 mg PO BID 7 Days #14 tab Referrals: [facility] [Provider Group] - 2-3 Days SHELDON HERNANDEZ MD [Staff Physician] - 2-3 Days Time of Disposition: 16:47 Print Language: SLOVENIAN
== END 2020-11-22 17:59 | disposition home or self-care (01) ==
LOC: ED 14:20
DX: N76.0 Acute vaginitis (principal); F17.200 Nicotine dependence, unspecified, uncomplicated; Z79.899 Other long term (current) drug therapy
CPT/HCPCS: 99282

== ENCOUNTER 2020-12-27 15:31 | Emergency (ER) | payer SELFPAY ==
--- NOTE | 2020-12-27 17:12 | Emergency Department Report ---
ED Female HPI - General Chief complaint: Vaginal Bleeding Stated complaint: STOMACH PAIN , SPOTTING, ITCHING BURNING Time Seen by Provider: 12/27/20 16:12 Source: patient, family Mode of arrival: Ambulatory Limitations: No Limitations - History of Present Illness Initial comments: 40-year-old female presents to the ER today with complaints of vaginal spotting. Patient states that her last menstrual cycle was November 29, 2020. Patient states that she was if she is because she has taken a few home tests and some of them have been positive. She states that the spotting started this morning. She denies any associated low abdominal cramping but does report associated vaginal itching and burning which started yesterday. She also reports a yellow vaginal discharge since yesterday. She denies any dysuria or hematuria. She reports same sexual partner with her for several years. She states that she is G9, P8 Ab0. Complaint: vaginal bleeding -: Sudden - Related Data Home Medications Medication Instructions Recorded Confirmed Last Taken Vits96/Iron Fum/Folic 1 tab PO DAILY 05/06/13 03/12/18 08/22/16 14:00 [ Tablet] 1 Previous Rx's Medication Instructions Recorded Last Taken Type Ferrous Sulfate 325 mg PO BID #60 tablet. 03/13/18 Unknown Rx oxyCODONE /ACETAMINOPHEN [Percocet 1 tab PO Q6HR PRN #20 tablet 03/13/18 Unknown Rx 5/325] Ibuprofen [Motrin 600 MG tab] 600 mg PO Q8H PRN #30 tablet 09/30/20 Unknown Rx Penicillin V Potassium 500 mg PO QID #40 tablet 09/30/20 Unknown Rx traMADoL [Ultram] 50 mg PO Q6HR PRN #12 tablet 09/30/20 Unknown Rx Fluconazole [Diflucan TAB] 100 mg PO QDAY 3 Days #3 tablet 11/22/20 Unknown Rx DOXYCYCLINE Hyclate [Vibramycin 100 mg PO Q12HR #14 capsule 12/27/20 Unknown Rx CAP] metroNIDAZOLE [Flagyl TAB] 500 mg PO BID 7 Days #14 tab 12/27/20 Unknown Rx Allergies Allergy/AdvReac Type Severity Reaction Status Date / Time No Known Allergies Allergy Verified 12/27/20 15:37 ED Review of Systems ROS: Stated complaint: STOMACH PAIN , SPOTTING, ITCHING BURNING Other details as noted in HPI Comment: All other systems reviewed and negative Gastrointestinal: denies: abdominal pain, nausea, diarrhea, constipation, hematemesis Genitourinary: discharge, other (vag itching ) Skin: denies: rash, lesions Neurological: denies: headache, weakness, paresthesias Psychiatric: denies: anxiety, depression, auditory hallucinations, visual hallucinations, homicidal thoughts, suicidal thoughts Hematological/Lymphatic: denies: easy bleeding, easy bruising, swollen glands ED Past Medical Hx - Past Medical History Hx Hypertension: No Hx Congestive Heart Failure: No Hx Diabetes: No Hx Deep Vein Thrombosis: No Hx Renal Disease: No Hx Sickle Cell Disease: No Hx Headaches / Migraines: No Hx Seizures: No Hx Asthma: No Hx COPD: No Hx HIV: No Additional medical history: toothache - Social History Smoking Status: Current Every Day Smoker Substance Use Type: None - Medications Home Medications: Home Medications Medication Instructions Recorded Confirmed Last Taken Type Vits96/Iron Fum/Folic 1 tab PO DAILY 05/06/13 03/12/18 08/22/16 14:00 History [ Tablet] 1 Ferrous Sulfate 325 mg PO BID #60 tablet. 03/13/18 Unknown Rx oxyCODONE /ACETAMINOPHEN [Percocet 1 tab PO Q6HR PRN #20 tablet 03/13/18 Unknown Rx 5/325] Ibuprofen [Motrin 600 MG tab] 600 mg PO Q8H PRN #30 tablet 09/30/20 Unknown Rx Penicillin V Potassium 500 mg PO QID #40 tablet 09/30/20 Unknown Rx traMADoL [Ultram] 50 mg PO Q6HR PRN #12 tablet 09/30/20 Unknown Rx Fluconazole [Diflucan TAB] 100 mg PO QDAY 3 Days #3 tablet 11/22/20 Unknown Rx DOXYCYCLINE Hyclate [Vibramycin 100 mg PO Q12HR #14 capsule 12/27/20 Unknown Rx CAP] metroNIDAZOLE [Flagyl TAB] 500 mg PO BID 7 Days #14 tab 12/27/20 Unknown Rx ED Physical Exam - General Limitations: No Limitations General appearance: alert, in no apparent distress - Head Head exam: Present: atraumatic, normocephalic, normal inspection - Eye Eye exam: Present: normal appearance, PERRL, EOMI Pupils: Present: normal accommodation - Neck Neck exam: Present: normal inspection, full ROM - Respiratory Respiratory exam: Present: normal lung sounds bilaterally. Absent: respiratory distress, wheezes, rales, rhonchi - Cardiovascular Cardiovascular Exam: Present: regular rate, normal rhythm, normal heart sounds - GI/Abdominal GI/Abdominal exam: Present: soft. Absent: distended, tenderness, guarding, rebound - External exam: Present: bleeding (small amt), other (dry, slightly hyperpigmented excoriated macular rash noted around labia and perineum. ) Speculum exam: Present: normal speculum exam, vaginal discharge (blood tinged yellow sputum). Absent: vaginal bleeding, foreign body Bi-manual exam: Present: normal bi-manual exam - Neurological Exam Neurological exam: Present: alert, oriented X3, CN II-XII intact, normal gait - Psychiatric Psychiatric exam: Present: normal affect, normal mood - Skin Skin exam: Present: intact ED Course Vital Signs 12/27/20 12/27/20 12/27/20 15:35 17:58 17:59 Temperature 97.7 F 97.9 F Pulse Rate 82 72 Respiratory 16 16 16 Rate Blood Pressure 107/65 Blood Pressure 113/71 [Left] O2 Sat by Pulse 100 98 95 Oximetry ED Medical Decision Making - Lab Data Result diagrams: 12/27/20 18:01 12/27/20 18:01 - Medical Decision Making All labs reviewed = CBC and CMP unremarkable. Quant hCG less than 2. Wet prep shows that patient is positive for trichomoniasis and BV. Urinalysis I believe is more contaminated from her vaginal discharge than a true UTI. Discussed all lab results with patient. Informed her that her quant hCG is less than 2 and therefore she is not . Informed her that she is positive for trichomonas and BV and also recommended that she get prophylactic treatment for gonorrhea and chlamydia which she opted to have done. Patient did get an IM injection of Rocephin and she will be given a prescription for Flagyl and doxycycline. Patient informed that her partner with significant other should also get tested and treated and she will be given referral information to [facility]. Patient was not toxic, not ill-appearing and not in any significant distress. She had a soft nontender abdomen. She was neurologically intact with a normal gait. Her vital signs are stable. Patient expressed understanding of all instructions and agree with plan. Patient stable at time of discharge. Critical care attestation.: If time is entered above; I have spent that time in minutes in the direct care of this critically ill patient, excluding procedure time. ED Disposition Clinical Impression: Vaginal bleeding, Trichomonal vaginitis, Bacterial vaginosis Disposition: HOME / SELF CARE / HOMELESS Is pt being admited?: No Does the pt Need Aspirin: No Condition: Stable Instructions: Bacterial Vaginosis, Trichomoniasis, Abnormal Uterine Bleeding, [id number], Bacterial Vaginosis (ED) Additional Instructions: I recommend that you take the doxycycline which we will treat for possible chlamydia and the Flagyl to help treat your bacterial vaginosis and your trichomonas. Your partner will also need to be tested and treated for STDs. I recommend no sexual activity for at least 7 days after treatment. Follow-up with your [facility]ATIONS [facility], if you do not have 1 will be provided for you on your discharge instructions. Return to the ER if your symptoms changes or worsens in any way. Prescriptions: metroNIDAZOLE [Flagyl TAB] 500 mg PO BID 7 Days #14 tab DOXYCYCLINE Hyclate [Vibramycin CAP] 100 mg PO Q12HR #14 capsule Referrals: PRIMARY [facility]ARE [Primary Care Provider] - 3-5 Days [facility] [Provider Group] - 3-5 Days [facility] [Provider Group] - 3-5 Days Forms: STI Treatment and Prevention Time of Disposition: 19:40 Print Language: TURKISH
[2020-12-27 18:02] VITALS: BP 113/71
[2020-12-27 18:12] LABS: Bilirubin,Urine NEG (Negative); Blood,Urine LG (Negative); Color,Urine Yellow (Yellow); Mucus,Urine FEW /HPF; Protein,Urine <15 mg/dL mg/dL (Negative); Urobilinogen,Urine < 2.0 mg/dL (<2.0)
[2020-12-27 18:30] LABS: Basophils % (Auto) 0.3 % (0.0-1.8); Eosinophils # (Auto) 0.2 K/mm3 (0.0-0.4); Eosinophils % (Auto) 2.4 % (0.0-4.3); Hematocrit 40.8 % (30.3-42.9); Hemoglobin 13.5 gm/dl (10.1-14.3); Lymphocytes # (Auto) 1.8 K/mm3 (1.2-5.4); Mean Corpuscular HGB Conc 33 % (30-34); Mean Corpuscular Volume 89 fl (79-97); Monocytes # (Auto) 0.4 K/mm3 (0.0-0.8); Monocytes % (Auto) 4.7 % (0.0-7.3); Platelet Count 236 K/mm3 (140-440); Red Blood Count 4.57 M/mm3 (3.65-5.03)
[2020-12-27 18:37] LABS: Alanine Aminotransferase 10 units/L (7-56); Albumin 4.1 g/dL (3.9-5); Blood Urea Nitrogen 5 mg/dL (7-17); Calcium 8.9 mg/dL (8.4-10.2); Hemolysis Index 8
[2020-12-27 18:51] LABS: BUN/Creatinine Ratio 10
[2020-12-27] MEDS ORDERED: LIDOCAINE-MPF (1%) 10 MG/1 ML VIAL 5 ML INFILTRATI ONE (19:35)
== END 2020-12-27 19:51 | disposition home or self-care (01) ==
LOC: ED 15:31
DX: O20.9 Hemorrhage in early pregnancy, unspecified (principal); A59.01 Trichomonal vulvovaginitis; N76.0 Acute vaginitis; B96.89 Other specified bacterial agents as the cause of diseases classified elsewhere; Z3A.00 Weeks of gestation of pregnancy not specified; F17.200 Nicotine dependence, unspecified, uncomplicated
CPT/HCPCS: 36415; 80053; 81001; 84702; 85025; 86900; 86901; 87210; 96372; 99284; J0696

== ENCOUNTER 2021-06-25 17:04 | Emergency (ER) | payer SELFPAY ==
[2021-06-25 18:32] VITALS: BP 100/58
== END 2021-06-25 20:35 | disposition left against medical advice (07) ==
LOC: ED 17:04
DX: R10.9 Unspecified abdominal pain (principal); Z53.21 Procedure and treatment not carried out due to patient leaving prior to being seen by health care provider

== ENCOUNTER 2021-06-26 15:59 | Emergency (ER) | payer MEDICAID ==
[2021-06-26 18:13] VITALS: BP 103/62
[2021-06-26 19:14] LABS: Bilirubin,Urine NEG (Negative); Blood,Urine NEG (Negative); Color,Urine Yellow (Yellow); Protein,Urine <15 mg/dL mg/dL (Negative)
--- NOTE | 2021-06-26 20:17 | Emergency Department Report ---
ED Abdominal Pain HPI - General Chief Complaint: Urogenital-Female Stated Complaint: ABD PAIN/VAG BURNING Time Seen by Provider: 06/26/21 20:11 Source: patient Mode of arrival: Ambulatory Limitations: No Limitations - History of Present Illness Initial Comments: Patient 40-year-old [place] female who is currently 6 weeks who presents for abdominal pain abdominal cramping for urination x3 days. Patient states intermittent nausea vomiting. Patient denies vaginal bleeding at this time. There is mild back pain and cramping. Patient is not seen [facility] ASSIST[facility] MANAGER to this point. Patient is G8, P8, A0. Pt denies ABO concerns. Denies concern for STI. Pt is tolerating p.o. intake at this time. MD Complaint: abdominal pain - Related Data Home Medications Medication Instructions Recorded Confirmed Last Taken No Known Home Medications [No 06/26/21 06/26/21 Unknown Reported Home Medications] Allergies Allergy/AdvReac Type Severity Reaction Status Date / Time No Known Allergies Allergy Verified 06/26/21 18:13 ED Review of Systems ROS: Stated complaint: ABD PAIN/VAG BURNING Other details as noted in HPI Constitutional: denies: chills, fever Eyes: denies: eye pain, eye discharge, vision change ENT: denies: ear pain, throat pain Respiratory: denies: cough, shortness of breath, wheezing Cardiovascular: denies: chest pain, palpitations Endocrine: no symptoms reported Gastrointestinal: abdominal pain, nausea. denies: vomiting, diarrhea, constipation, melena Genitourinary: frequency. denies: urgency, dysuria, hematuria, discharge, dyspareunia Musculoskeletal: back pain Skin: denies: rash, lesions Neurological: as per HPI. denies: headache, numbness, paresthesias, confusion, vertigo Psychiatric: denies: anxiety, depression Hematological/Lymphatic: as per HPI ED Past Medical Hx - Past Medical History Previous Medical History?: No Hx Hypertension: No Hx Congestive Heart Failure: No Hx Diabetes: No Hx Deep Vein Thrombosis: No Hx Renal Disease: No Hx Sickle Cell Disease: No Hx Headaches / Migraines: No Hx Seizures: No Hx Asthma: No Hx COPD: No Hx HIV: No Additional medical history: toothache - Social History Smoking Status: Current Every Day Smoker Substance Use Type: None - Medications Home Medications: Home Medications Medication Instructions Recorded Confirmed Last Taken Type No Known Home Medications [No 06/26/21 06/26/21 Unknown History Reported Home Medications] ED Physical Exam - General Limitations: No Limitations General appearance: alert, in no apparent distress - Head Head exam: Present: normocephalic, normal inspection - Eye Eye exam: Present: normal appearance, EOMI Pupils: Present: normal accommodation - ENT ENT exam: Present: mucous membranes moist - Neck Neck exam: Present: normal inspection, full ROM. Absent: tenderness - Respiratory Respiratory exam: Present: normal lung sounds bilaterally. Absent: respiratory distress, wheezes - Cardiovascular Cardiovascular Exam: Present: regular rate, normal rhythm, normal heart sounds. Absent: systolic murmur, diastolic murmur, rubs, gallop - GI/Abdominal GI/Abdominal exam: Present: soft, guarding, normal bowel sounds. Absent: distended, tenderness - Rectal Rectal exam: Present: deferred - External exam: Present: other (deferred ) - Extremities Exam Extremities exam: Present: normal inspection, full ROM, normal capillary refill. Absent: pedal edema - Back Exam Back exam: Present: full ROM. Absent: CVA tenderness (R), CVA tenderness (L) - Neurological Exam Neurological exam: Present: alert, oriented X3, CN II-XII intact, normal gait - Psychiatric Psychiatric exam: Present: normal affect, normal mood - Skin Skin exam: Present: warm, dry, intact, normal color. Absent: rash ED Course Vital Signs 06/26/21 06/26/21 18:10 19:47 Temperature 98.1 F Pulse Rate 71 Respiratory 14 16 Rate Blood Pressure 103/62 O2 Sat by Pulse 100 99 Oximetry ED Medical Decision Making - Lab Data Result diagrams: 06/26/21 20:18 Labs 06/26/21 06/26/21 06/26/21 18:15 20:18 20:18 WBC 5.4 RBC 4.24 Hgb 12.6 Hct 37.9 MCV 89 MCH 30 MCHC 33 RDW 13.1 L Plt Count 215 Lymph % (Auto) Pipe Layer [place] % (Auto) Pipe Layer Eos % (Auto) Pipe [place] Baso % (Auto) Pipe [place] Lymph # (Auto) Pipe Layer [place] # (Auto) Pipe Layer Eos # (Auto) Pipe Layer Baso # (Auto) Pipe Layer Seg Neutrophils % Pipe Layer Seg Neutrophils # Pipe Layer HCG, Quant < 2 Urine Color Yellow Urine Turbidity Clear Urine pH 6.0 Ur Specific [place] 1.017 Urine Protein <15 mg/dl Urine Glucose (UA) Neg Urine Ketones Neg Urine Blood Neg Urine Nitrite Neg Urine Bilirubin Neg Urine Urobilinogen 4.0 Ur Leukocyte Esterase Neg Urine WBC (Auto) 1.0 Urine RBC (Auto) 1.0 U Epithel Cells (Auto) 4.0 - Medical Decision Making hCG negative for . There is no vaginal discharge no vaginal bleeding. There is no dysuria frequency or urgency. Patient is tolerating p.o. intake without nausea vomiting plan DC to home. Follow-up primary care doctor in 2 to 3 days. Patient verbalized agreement understanding of same patient DC'd home in stable condition at this time. Critical care attestation.: If time is entered above; I have spent that time in minutes in the direct care of this critically ill patient, excluding procedure time. ED Disposition Clinical Impression: Abdominal pain Qualifiers: Abdominal location: generalized Qualified Code(s): R10.84 - Generalized abdominal pain Disposition: 01 HOME / SELF CARE / HOMELESS Is pt being admited?: No Does the pt Need Aspirin: No Condition: Stable Instructions: Abdominal Pain, Adult, [id number] Additional Instructions: Follow-up with your gynecology doctor. test was negative. Return to emergency department should symptoms worsen. Referrals: LEONARD MCMULLEN MD [Staff Physician] - 3-5 Days Forms: Work/School Release Form(ED) Time of Disposition: 22:06
[2021-06-26 21:19] LABS: Hematocrit 37.9 % (30.3-42.9); Hemoglobin 12.6 gm/dl (10.1-14.3); Mean Corpuscular HGB Conc 33 % (30-34); Mean Corpuscular Volume 89 fl (79-97); Platelet Count 215 K/mm3 (140-440); Red Blood Count 4.24 M/mm3 (3.65-5.03); Red Cell Distribution Width 13.1 % (13.2-15.2)
== END 2021-06-26 22:19 | disposition home or self-care (01) ==
LOC: ED 15:59
DX: R10.9 Unspecified abdominal pain (principal); F17.200 Nicotine dependence, unspecified, uncomplicated
CPT/HCPCS: 36415; 81001; 84702; 85025; 99283

== ENCOUNTER 2021-07-24 19:21 | Emergency (ER) | payer MEDICAID | END 2021-07-24 19:25 | disposition left against medical advice (07) | LOC: ED 19:21 | DX: R10.9 Unspecified abdominal pain (principal); Z53.21 Procedure and treatment not carried out due to patient leaving prior to being seen by health care provider ==